=== PATIENT | male | born 1995 | race African-American/Black ===

== ENCOUNTER 2017-09-24 14:15 | Emergency (ER) | payer OTHER ==
[~2017-09-24] VITALS: Ht 170.2 cm; Wt 89.8 kg
[2017-09-24] MEDS ORDERED: HYDROXYZINE HCL50 MG PO (19:30)
== END 2017-09-24 19:58 | disposition home or self-care (01) ==
LOC: ER 14:15
DX: R42 Dizziness and giddiness (principal); F06.4 Anxiety disorder due to known physiological condition; F50.2 Bulimia nervosa